=== PATIENT | female | born 1990 | race Caucasian/White ===

== ENCOUNTER 2016-10-02 11:15 | Emergency (ER) | payer OTHER, SELFPAY ==
[2016-10-02 13:41] LABS: RED BLOOD COUNT 4.64 M/UL (4.00-5.10); WHITE BLOOD COUNT 6.8 K/UL (4.5-11.0)
[2016-10-02 14:06] LABS: BUN/CREATININE RATIO 14 (0-10)
== END 2016-10-02 16:20 | disposition home or self-care (01) ==
LOC: ER1 11:15
PROVIDERS: Family Medicine
DX: B34.9 Viral infection, unspecified (principal); R11.0 Nausea
CPT/HCPCS: 36415; 80053; 81001; 82150; 83690; 85025; 87081; 87086; 87880; 96361; 96374; 99284; J2405

== ENCOUNTER → 2017-01-07 | Outpatient (CLI) | payer OTHER | LOC: US 08:50 | DX: R10.11 Right upper quadrant pain (principal) | CPT/HCPCS: 76700 ==

== ENCOUNTER → 2020-12-22 | Outpatient (CLI) | payer BC ==
[2020-12-22 09:48] LABS: HEMOGLOBIN 13.5 gm/dl (12.3-15.3); RED BLOOD COUNT 4.37 M/UL (4.00-5.10); WHITE BLOOD COUNT 6.2 K/UL (4.5-11.0)
[2020-12-22 10:13] LABS: BUN/CREATININE RATIO 13 (0-10)
== END ==
LOC: LAB 07:58
PROVIDERS: Family Medicine
DX: R76.8 Other specified abnormal immunological findings in serum (principal); E53.8 Deficiency of other specified B group vitamins; K21.9 Gastro-esophageal reflux disease without esophagitis
CPT/HCPCS: 36415; 80053; 82607; 84439; 84443; 85027

== ENCOUNTER 2022-01-28 02:44 | Inpatient (IN) | payer BC ==
[~2022-01-28] VITALS: Ht 167.6 cm; Wt 79.4 kg
[2022-01-28 05:16] LABS: HEMOGLOBIN 12.7 gm/dl (12.3-15.3); RED BLOOD COUNT 4.11 M/UL (4.00-5.10); WHITE BLOOD COUNT 13.2 K/UL (4.5-11.0)
[2022-01-28] MEDS ORDERED: PRENATAL VITAM1 EAC3 PO (06:09)
[2022-01-28] MEDS ORDERED: DOCUSATE SODIU100 MG PO (08:03)
[2022-01-28] MEDS ORDERED: IBUPROFEN600 MG PO (08:03)
[2022-01-28] MEDS ORDERED: HYDROCODON-ACE1 EAC4 PO (08:03)
[2022-01-29 07:02] LABS: HEMOGLOBIN 9.8 gm/dl (12.3-15.3)
[2022-01-29] MEDS ORDERED: IRON325 M1 PO (13:03)
== END 2022-01-31 17:07 | disposition home or self-care (01) | DRG 787 ==
LOC: GENOP 02:44 → OB 05:42
PROVIDERS: ADMIT Obstetrics & Gynecology
PROC: 3E0234Z Introduction of Serum, Toxoid and Vaccine into Muscle, Percutaneous Approach (ICD-10-PCS; 2022-01-28)
PROC: 10D00Z1 Extraction of Products of Conception, Low, Open Approach (ICD-10-PCS; principal; 2022-01-28 08:16)
DX: O32.1XX0 Maternal care for breech presentation, not applicable or unspecified (principal); D62 Acute posthemorrhagic anemia; O99.344 Other mental disorders complicating childbirth; O99.02 Anemia complicating childbirth; F41.9 Anxiety disorder, unspecified; O99.62 Diseases of the digestive system complicating childbirth; K21.9 Gastro-esophageal reflux disease without esophagitis; Z37.0 Single live birth; Z3A.38 38 weeks gestation of pregnancy; Z28.310 Unvaccinated for COVID-19; Z82.49 Family history of ischemic heart disease and other diseases of the circulatory system; Z83.3 Family history of diabetes mellitus; Z80.8 Family history of malignant neoplasm of other organs or systems; Z23 Encounter for immunization
CPT/HCPCS: 36415; 81001; 82800; 84112; 85014; 85018; 85025; 90715; C9113; J0690; J1170; J2250; J2370; J2405; J2590

== ENCOUNTER → 2022-02-12 17:24 | Emergency (ER) | payer BC ==
[~2022-02-12 17:24] MED LIST: DOCUSATE SODIU100 MG PO; HYDROCODON-ACE1 EAC4 PO; IBUPROFEN600 MG PO; IRON325 M1 PO; PRENATAL VITAM1 EAC3 PO
== END | disposition left against medical advice (07) ==
LOC: ER1 17:24
DX: Z53.21 Procedure and treatment not carried out due to patient leaving prior to being seen by health care provider (principal)